=== PATIENT | male | born 1945 | race Caucasian/White ===

== ENCOUNTER → 2017-08-16 | Outpatient (CLI) | payer OTHER ==
[2017-08-16 14:31] LABS: ALANINE AMINOTRANSFERASE 56 U/L (12-78); ALBUMIN 3.9 g/dL (3.4-5.0); ANION GAP 6 mmol/L (5-15); CALCIUM 8.8 mg/dL (8.5-10.1); CHLORIDE 108 mmol/L (98-107); CREATININE 1.24 mg/dL (0.7-1.3)
[2017-08-16 14:33] LABS: ALKALINE PHOSPHATASE 67 U/L (45-117); BILIRUBIN,TOTAL 0.5 mg/dL (0.2-1.0); TOTAL PROTEIN 7.3 g/dL (6.4-8.2)
== END | disposition home or self-care (01) ==
LOC: STAR 13:21
PROVIDERS: ATTEND Internal Medicine Geriatric Medicine
DX: Z01.818 Encounter for other preprocedural examination (principal); K86.2 Cyst of pancreas; I45.10 Unspecified right bundle-branch block; I44.0 Atrioventricular block, first degree
CPT/HCPCS: 36415; 80053; 93005

== ENCOUNTER 2017-08-30 05:31 | Day surgery (SDC) | payer OTHER ==
[~2017-08-30] VITALS: Ht 182.9 cm; Wt 111.0 kg
[~2017-08-30 05:31] MED LIST: ALBU8.5H8 IH; ASPI-496 PO; ATOR40TA78 PO; BUDE10.2 INH; CHOL2000 PO; CYAN100072 PO; DIPH25CA61 PO; FINA5TAB4 PO; HYDR25TA6 PO; LOSA50TA6 PO; METF850T2 PO; METO50TA82 PO; NAPR220T77 PO; NPH,100V5 SQ-INSULIN; Oxygen INH; PRAM1TAB5 PO; PROP10DR2 EACHEYE; SAXA5TAB PO; TAMS-11 PO
[2017-08-30] MEDS ORDERED: LACTATED RINGERS 1,000 ML IV SCH (06:06)
[2017-08-30 06:09] VITALS: BP 120/74
[2017-08-30] MEDS ORDERED: KETAMINE 10 MG/ML, 20ML ONE (07:09)
[2017-08-30] MEDS ORDERED: MIDAZOLAM 1 MG/ML, 2ML ONE (07:09)
[2017-08-30] MEDS ORDERED: PHENYLEPHRINE 10 MG/ML ONE (07:09)
[2017-08-30] MEDS ORDERED: FENTANYL PF 100 MCG/2ML ONE (07:09)
[2017-08-30] MEDS ORDERED: PROPOFOL 10 MG/ML, 20ML ONE ×2 (07:11)
[2017-08-30] MEDS ORDERED: MEPERIDINE/PF 25MG/0.5ML IVPush PRN (07:30)
[2017-08-30] MEDS ORDERED: ALBUTEROL SULFATE 2.5 MG/3 ML NPPB PRN (07:30)
[2017-08-30] MEDS ORDERED: ACETAMINOPHEN 325 MG TABLET PO PRN (07:30)
[2017-08-30] MEDS ORDERED: LABETALOL 5MG/ML, 20ML IV PRN (07:30)
[2017-08-30] MEDS ORDERED: OXYcodone 5 MG/5 ML ORAL.SOL UDC PO PRN (07:30)
[2017-08-30] MEDS ORDERED: morphine SULFATE 10 MG/ML, 1ML IV PRN (07:30)
[2017-08-30] MEDS ORDERED: FENTANYL PF 100 MCG/2ML IV PRN (07:30)
[2017-08-30] MEDS ORDERED: PROMETHAZINE 25 MG/ML, 1ML IV PRN (07:30)
[2017-08-30] MEDS ORDERED: hydrALAzine 20 MG/ML, 1ML IV PRN (07:30)
[2017-08-30] MEDS ORDERED: NEOSTIGMINE 1 MG/ML, 10ML ONE (07:45)
[2017-08-30] MEDS ORDERED: CIPROFLOXACIN/PMX 400MG/200ML 200 ML ONE (08:06)
[2017-08-30] MEDS ORDERED: METRONIDAZOLE PMX 500MG/100ML 100 ML ONE (08:06)
== END 2017-08-30 09:35 ==
LOC: OUT 05:31
PROVIDERS: ATTEND Internal Medicine Geriatric Medicine
DX: K86.9 Disease of pancreas, unspecified (principal); E66.9 Obesity, unspecified; J44.9 Chronic obstructive pulmonary disease, unspecified; Z85.828 Personal history of other malignant neoplasm of skin; Z79.4 Long term (current) use of insulin; Z72.89 Other problems related to lifestyle; Z88.0 Allergy status to penicillin; Z88.5 Allergy status to narcotic agent
CPT/HCPCS: 43242; 82962; J0744; J2250; J2370; J2704; J2710; J3010; J7120